=== PATIENT | female | born 2000 | race Caucasian/White ===

== ENCOUNTER → 2022-11-25 | Outpatient (CLI) | payer BC, OTHER ==
--- NOTE | 2022-11-25 17:38 | Diagnostic Imaging Report ---
CLINICAL INDICATION: Patient with low back pain. EXAM: X-ray of the lumbar spine, multiple views. COMPARISONS: None. FINDINGS: There is no acute fracture or dislocation. There is mild to moderate loss of disk space height at the L5-S1 level. Sacroiliac joints show no significant abnormality. There are no significant degenerative changes. IMPRESSION: 1: There is [id number] loss of disk space height at the L5-S1 level. Unknown if this is related to disk disease or normal for patient. MRI of the lumbar spine would better evaluate. Dictated by: Dictated on workstation # [id number]
== END ==
LOC: RAD FS 14:04
PROVIDERS: ATTEND Nurse Practitioner
DX: M51.37 Other intervertebral disc degeneration, lumbosacral region (principal)
CPT/HCPCS: 72110